=== PATIENT | male | born 1945 | race Caucasian/White ===

== ENCOUNTER 2020-06-17 11:20 | Emergency (ER) | payer MEDICARE, BC ==
[~2020-06-17] VITALS: Ht 170.2 cm; Wt 90.7 kg
[~2020-06-17 11:20] MED LIST: ALBUTEROL2.5 MG/3 M INH; COMBIVENT RESPIM4 GM INH; FOLIC ACID1 MG PO; HYDROXYCHLOROQ200 MG PO; IPRATROPIU0.2 MG/1 M INH; LEVAQUIN750 MG PO; LEVOTHYROXINE175 MCG PO; METHOTREXATE2.5 MG PO; NICODERM CQ1 EAC1 TD; PRAVASTATIN SOD10 MG PO; PREDNISONE10 MG PO; PREDNISONE20 MG PO; PROAIR HFA8.5 GM INH; SPIRIVA RESPIMAT4 GM INH; SYMBICORT 16010.2 GM INH
[2020-06-17] MEDS ORDERED: DOXYCYCLINE HY100 MG PO (14:07)
[2020-06-17] MEDS ORDERED: LASIX40 MG PO (14:07)
[2020-06-17] MEDS ORDERED: TRAZODONE HCL50 MG PO (14:10)
== END 2020-06-17 14:35 | disposition home or self-care (01) ==
LOC: ED 11:20
DX: I87.2 Venous insufficiency (chronic) (peripheral) (principal); R60.0 Localized edema; G47.00 Insomnia, unspecified; J44.9 Chronic obstructive pulmonary disease, unspecified; E78.00 Pure hypercholesterolemia, unspecified; E03.9 Hypothyroidism, unspecified; F17.200 Nicotine dependence, unspecified, uncomplicated; Z88.5 Allergy status to narcotic agent; Z79.899 Other long term (current) drug therapy; Z79.52 Long term (current) use of systemic steroids
CPT/HCPCS: 80048; 85025; 99283